=== PATIENT | female | born 1980 | race Caucasian/White ===

== ENCOUNTER → 2017-05-16 | Outpatient (CLI) | payer OTHER ==
--- NOTE | 2017-05-16 15:08 | DIAGNOSTIC IMAGING REPORT ---
RIGHT LOWER EXT NONJOINT W/O CLINICAL HISTORY: 36 years-old Female presenting with CALF PAIN, Injured right calf while exercising, concern for tear, most pain is proximal. TECHNIQUE: Multisequence, multiplanar MR imaging of the right lower leg was performed without the use of intravenous contrast. IV contrast: None. COMPARISON: None. FINDINGS: Localizer images: Unremarkable. Pretibial T2 hyperintensity suggestive of periosteal fluid. No bony edema or cortical disruption. Normal muscle bulk. Increased signal intensity within the belly of the medial gastrocnemius. Focal linear irregularity along the deep fibers (series 10 image 26), which does not course through the entire thickness of the muscle belly. Small amount of interfascial edema subjacent to this region. No hematoma. Visualized portion of the knee joint demonstrates intact anterior and posterior cruciate ligaments. The medial collateral ligament is grossly intact. The lateral collateral ligament complex including the fibular collateral ligament, biceps femoris tendon, popliteus tendon and iliotibial band are grossly intact. Patellar tendon normal. No knee joint effusion. No gross evidence of meniscal abnormality on this nondedicated examination. IMPRESSION: 1. Findings consistent with muscle strain of the belly of the medial gastrocnemius. Focal linear irregularity along the deep fibers suggest partial tear. 2. Extensive pretibial periosteal edema could represent medial tibial stress syndrome. No bone marrow edema. No stress fracture. Electronically signed by: Timo Arellano M.D. 05/16/2017 3:07 PM Dictated Date/Time: 05/16/2017 2:59 PM
== END | disposition home or self-care (01) ==
LOC: C.MRI 13:39
PROVIDERS: ATTEND Orthopaedic Surgery
DX: S89.91XA Unspecified injury of right lower leg, initial encounter (principal); M79.661 Pain in right lower leg; Y93.B9 Activity, other involving muscle strengthening exercises